=== PATIENT | female | born 1955 ===

== ENCOUNTER 2020-11-05 08:00 | Outpatient (CLI) | payer OTHER | END 2020-11-05 08:30 | disposition home or self-care (01) | LOC: PPH VACUNA 08:00 | DX: Z23 Encounter for immunization (principal) ==

== ENCOUNTER 2024-07-12 09:52 | Outpatient (CLI) | payer OTHER | END 2024-07-12 09:56 | disposition home or self-care (01) | LOC: SONOGRAMA 09:52 | DX: J98.6 Disorders of diaphragm (principal) ==